=== PATIENT | female | born 1970 | race Caucasian/White ===

== ENCOUNTER → 2016-12-07 | Outpatient (CLI) | payer BC | LOC: WI 13:13 | PROVIDERS: ATTEND Specialist | DX: Z12.31 Encounter for screening mammogram for malignant neoplasm of breast (principal); M81.0 Age-related osteoporosis without current pathological fracture | CPT/HCPCS: 77080; G0202 ==

== ENCOUNTER → 2018-01-27 | Outpatient (CLI) | payer BC ==
--- NOTE | 2018-01-28 07:26 | WOMENS IMAGING REPORT ---
EXAM DESCRIPTION: 3D SCREENING MAMMO RIGHT COMPLETED DATE/TIME: 01/27/2018 2:33 pm REASON FOR STUDY: ROUTINE SCREENING;Z12.31 Z12.31 ENCNTR SCREEN MAMMOGRAM FOR MALIGNANT NEOPLASM OF KATRIN COMPARISON: Multiple since 2011 TECHNIQUE: Implant displaced and whole breast craniocaudal and mediolateral oblique views of the rig ht breast recorded using digital acquisition and breast tomosynthesis. LIMITATIONS: None. FINDINGS: BREAST: Right MASSES: No suspicious masses. CALCIFICATIONS: In the right retroareolar 12 o'clock position, micro calcifications are present which require further evaluation with compression magnification views ARCHITECTURAL DISTORTION: Patient is post right breast reduction and breast lift with postsurgical ch anges present. DEVELOPING DENSITY: None. ASYMMETRY: None noted. OTHER: Retropectoral right breast implant. Read with the assistance of CAD. .[facility] - R2 [employer] Version 1.3 .[facility] - R2 Cenova Version 1.3 .[facility] - R2 Cenova Version 2.4 .[facility] - R2 Cenova Version 2.4 .[facility] - R2 Residential Program Coordinator Version 9.2 IMPRESSION: Calcifications right breast retroareolar region which require further evaluation with co mpression magnification views BREAST DENSITY: c. The breasts are heterogeneously dense, which may obscure small masses. BIRAD: 0 Incomplete: Needs Additional Imaging Evaluation and/or prior Mammograms for Comparison. RECOMMENDATION: RECOMMENDED FOLLOW-UP: Right breast compression magnification views for calcificatio ns in the retroareolar region The patient will be contacted for additional imaging. COMMENT: The patient has been notified of the results by letter per SA requirements. Additional no tification policies are in place for contacting patient with suspicious or incomplete findings. Quality ID #[id number]: The [employer] recommends an annual screening mammogram for women aged 40 years or over. This facility utilizes a reminder system to ensure that all patients receive reminder letters, and/or direct phone calls for appointments. This includes reminders for routine scr eening mammograms, diagnostic mammograms, or other Breast Imaging Interventions when appropriate. Th is patient will be placed in the appropriate reminder system. The [employer] (ACR) has developed recommendations for screening MRI of the breast s in certain patient populations, to be used in conjunction with mammography. Breast MRI surveillance may be appropriate for women with more than 20% lifetime risk of developing breast cancer as determi walter by genetic testing, significant family history of the disease, or history of mantle radiation for Hodgkins Disease. ACR Practice Guidelines 2008. DBT Technology DBT is a type of tomographic mammography. With conventional mammography, overlapping breast tissue ma y make lesions difficult to detect, even with good compression. DBT uses an x-ray tube that rotates a round the breast, taking images at different angles. These images are then combined to create thin sl ices of the breast that the radiologist can view as a 3D reconstruction. The [employer] unit can perform full-field digital mammograms (2D imaging); or DBT (3D imaging); or both, in a combination mode that quickly performs both the mammogram and the tomosynthesis scan while the breast is still compressed. PQRS 6045F: Fluoroscopic imaging is not utilized for breast tomosynthesis. TECHNICAL DOCUMENTATION: FINDING NUMBER: (1) ASSESSMENT: (1) JOB ID: [id number] [employer]- All Rights Reserved Reading location - IP/workstation name: [email or web address]
== END ==
LOC: WI 14:12
PROVIDERS: ATTEND Internal Medicine Hematology & Oncology
DX: Z12.31 Encounter for screening mammogram for malignant neoplasm of breast (principal)

== ENCOUNTER → 2018-02-03 | Outpatient (CLI) | payer BC ==
--- NOTE | 2018-02-04 14:37 | WOMENS IMAGING REPORT ---
EXAM DESCRIPTION: RIGHT DIAGNOSTIC MAMMO W/CAD COMPLETED DATE/TIME: 02/03/2018 8:46 am REASON FOR STUDY: RT BREAST CALCS R92.0 MAMMOGRAPHIC MICROCALCIFICATION FOUND ON DX IMAGING OF COMPARISON: 01/27/2018 and 12/07/2016. TECHNIQUE: True lateral and magnification lateral and CC images acquired. LIMITATIONS: None. FINDINGS: BREAST: right MASSES: No suspicious masses. CALCIFICATIONS: Calcifications in the retroareolar breast directly behind the nipple. Calcifications are relatively round with smooth margins and no clear-cut pleomorphic characteristics. A few of the calcifications may have radiolucent centers. ARCHITECTURAL DISTORTION: None. DEVELOPING DENSITY: None. ASYMMETRY: None noted. OTHER: No other significant findings. IMPRESSION: Calcifications in the retroareolar breast which do not have clearly suspicious appearanc e mammographically. Recommend a short-term interval followup. BREAST DENSITY: b. There are scattered areas of fibroglandular density. BIRAD: 3 Probably benign finding. Initial short-interval follow-up suggested. RECOMMENDATION: RECOMMENDED FOLLOW UP: Birads 3: The patient will return in 6 months for follow-up i pritesh. SPECIFIC INTERVENTION/IMAGING/CONSULTATION RECOMMENDED:No additional intervention/ imaging/consultati on needed at this time. COMMUNICATION:The imaging findings were not discussed with the patient. Her referring provider has be en notified of the findings. COMMENT: The patient has been notified of the results by letter per SA requirements. Additional no tification policies are in place for contacting patient with suspicious or incomplete findings. Quality ID #[id number]: The [employer] recommends an annual screening mammogram for women aged 40 years or over. This facility utilizes a reminder system to ensure that all patients receive reminder letters, and/or direct phone calls for appointments. This includes reminders for routine scr eening mammograms, diagnostic mammograms, or other Breast Imaging Interventions when appropriate. Th is patient will be placed in the appropriate reminder system. The [employer] (ACR) has developed recommendations for screening MRI of the breast s in certain patient populations, to be used in conjunction with mammography. Breast MRI surveillanc e may be appropriate for women with more than 20% lifetime risk of developing breast cancer as deter mined by genetic testing, significant family history of the disease, or history of mantle radiation f or Hodgkins Disease. ACR Practice Guidelines 2008. TECHNICAL DOCUMENTATION: FINDING NUMBER: (1) ASSESSMENT: (1) JOB ID: [id number] [employer]- All Rights Reserved Reading location - IP/workstation name: [email or web address]
== END ==
LOC: WI 08:30
PROVIDERS: ATTEND Internal Medicine Hematology & Oncology
DX: R92.0 Mammographic microcalcification found on diagnostic imaging of breast (principal); R92.2 Inconclusive mammogram

== ENCOUNTER → 2020-07-10 | Outpatient (CLI) | payer BC ==
--- NOTE | 2020-07-10 13:41 | WOMENS IMAGING REPORT ---
EXAM DESCRIPTION: 3D SCREENING MAMMO RIGHT IMAGES COMPLETED DATE/TIME: 07/10/2020 10:55 am REASON FOR STUDY: ROUTINE SCREENING MAMMOGRAM Z12.31 Z12.31 ENCNTR SCREEN MAMMOGRAM FOR MALIGNANT N EOPLASM OF KATRIN COMPARISON: Priors back to 2013. EXAM PARAMETERS: Standard craniocaudal and mediolateral oblique views of the breast recorded using d igital acquisition and breast tomosynthesis. Additional "push-back" craniocaudal and mediolateral ob lique images acquired. Read with the assistance of CAD. .[facility] - [employer] Test Evaluator Version 9.2 LIMITATIONS: None. FINDINGS: IMPLANT: Subpectoral implant. BREAST LATERALITY: right Findings present which are benign by mammographic criteria. No suspicious masses, calcifications or a rchitectural distortion. Benign mammographic findings may include one or more of the following: Smooth masses, popcorn/rim/co arse calcifications, asymmetries, post-procedure changes, and lesions with long-standing stability. IMPRESSION: BENIGN FINDINGS. BIRADS 2. BREAST DENSITY: b. There are scattered areas of fibroglandular density. BIRAD: ASSESSMENT: 2 Benign Finding(s) RECOMMENDATION: RECOMMENDATION: ROUTINE SCREENING. COMMENT: The patient has been notified of the results by letter per SA requirements. Additional no tification policies are in place for contacting patient with suspicious or incomplete findings. Quality ID #[id number]: The [employer] recommends an annual screening mammogram for women aged 40 years or over. This facility utilizes a reminder system to ensure that all patients receive reminder letters, and/or direct phone calls for appointments. This includes reminders for routine scr eening mammograms, diagnostic mammograms, or other Breast Imaging Interventions when appropriate. Th is patient will be placed in the appropriate reminder system. TECHNICAL DOCUMENTATION: FINDING NUMBER: (1) ASSESSMENT: (1) JOB ID: [id number] 2010 [employer]- All Rights Reserved Reading location - IP/workstation name: [email or web address]
--- OUTSIDE RECORDS SUMMARY | 2020-07-12 14:41 | XMS REPORT ---
:1970 Author Organization [facility] Address [facility] [address] [place] [id number] Care Team Providers Name Role Phone Natalie Attending Clinician Unavailable Delfino Mayorga Attending Clinician Unavailable Natalie Attending Clinician Unavailable Allergies, Adverse Reactions, Alerts This patient has no known allergies or adverse reactions. Medications Ordered Filled Start Stop Current Ordering Indication Dosage Frequency Signature Comments Components Medication Medication Date Date Medication? Clinician (SIG) Name Name atorvastati No atorvastat n 10 mg in 10 mg tablet TK 1 tablet TK T PO QD 1 T PO QD dextroamphe No dextroamph tamine-amph etamine-am etamine 30 phetamine mg tablet 30 mg TK 2 TS PO tablet TK QD B KATRIN 2 TS PO QD B KATRIN fluvoxamine No fluvoxamin 25 mg e 25 mg tablet tablet levothyroxi No levothyrox ne 50 mcg ine 50 mcg tablet TAKE tablet 1 TABLET BY TAKE 1 MOUTH EVERY TABLET BY DAY MOUTH EVERY DAY meloxicam No meloxicam 7.5 mg 7.5 mg tablet TAKE tablet 1 TABLET BY TAKE 1 MOUTH DAILY TABLET BY NEEDED MOUTH DAILY NEEDED venlafaxine No venlafaxin ER 150 mg e ER 150 capsule,ext mg ended capsule,ex release 24 tended hr release 24 hr venlafaxine No venlafaxin ER 75 mg e ER 75 mg capsule,ext capsule,ex ended tended release 24 release 24 hr hr Ventolin No 2inhala Q5H Ventolin HFA 90 tion(s) HFA 90 mcg/actuati mcg/actuat on aerosol ion inhaler aerosol Inhale 2 inhaler inhalations Inhale 2 every 4-6 inhalation hours by s every inhalation 4-6 hours route as by directed inhalation for 30 route as days. directed for 30 days. Problems Condition Condition Condition Status Onset Resolution Last Treatin g Comments Name Details Category Date Date Treatment Clinician Date Mild Mild Problem Active 2019-08 intermitten Intermitten 0-14 t asthma t Asthma 00:00: 00 Anemia Anemia Problem Active Bipolar Bipolar Problem Active disorder Disorder Alcohol Alcohol Problem Active dependence Dependence Nicotine Nicotine Problem Active dependence Dependence Depressive Depressive Problem Active disorder Disorder Insomnia Insomnia Problem Active Disorder of Disorder of Problem Active artery Artery Allergic Allergic Problem Active rhinitis Rhinitis Acute Acute Problem Active alcoholic Alcoholic liver Liver disease Disease Low back Low Back Problem Active pain Pain Cough Cough Problem Active Mammographi Mammographi Problem Active c breast c Breast mass Mass Measurement Measurement Problem Active finding Finding Degeneratio Degeneratio Problem Active n of n of interverteb Interverteb ral disc ral Disc Genital Genital Problem Active herpes Herpes simplex Simplex Malignant Malignant Problem Active neoplasm of Neoplasm of female Female breast Breast Hypothyroid Hypothyroid Problem Active ism ism Vitamin D Vitamin D Problem Active deficiency Deficiency Hyperlipide Hyperlipide Problem Active raymond raymond 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 Anemia due to Due to vitamin Vitamin B>12< B>12< deficiency Deficiency Procedures Procedure Date / Time Performed Performing Clinician Devic e pulse oximetry (PROC) 2020-06-12 00:00:00 MAMMO, screening, digital, 2020-06-12 00:00:00 bilateral US, thyroid 2020-06-12 00:00:00 OFFICE/OUTPATIENT VISIT EST 2020-04-09 08:20:00 OFFICE/OUTPATIENT VISIT EST 2019-12-12 12:40:00 OFFICE/OUTPATIENT VISIT EST 2019-09-05 08:50:00 OFFICE/OUTPATIENT VISIT EST 2019-05-16 07:00:00 OFFICE/OUTPATIENT VISIT EST 2019-01-19 10:00:00 OFFICE/OUTPATIENT VISIT EST 2018-10-27 10:10:00 OFFICE/OUTPATIENT VISIT EST 2018-09-01 08:40:00 OFFICE/OUTPATIENT VISIT EST 2018-08-03 11:50:00 OFFICE/OUTPATIENT VISIT EST 2018-06-30 12:00:00 OFFICE/OUTPATIENT VISIT EST 2018-03-31 09:10:00 OFFICE/OUTPATIENT VISIT EST 2018-03-03 13:40:00 OFFICE/OUTPATIENT VISIT EST 2017-11-24 19:10:00 OFFICE/OUTPATIENT VISIT EST 2017-09-09 14:50:00 OFFICE/OUTPATIENT VISIT EST 2017-05-26 08:30:00 OFFICE/OUTPATIENT VISIT EST 2017-04-28 08:30:00 OFFICE/OUTPATIENT VISIT EST 2017-03-29 09:00:00 OFFICE/OUTPATIENT VISIT EST 2017-02-18 15:40:00 OFFICE/OUTPATIENT VISIT EST 2016-12-24 15:00:00 OFFICE/OUTPATIENT VISIT EST 2016-11-24 15:20:00 OFFICE/OUTPATIENT VISIT EST 2016-08-11 14:30:00 Mastectomy 2013-08-30 00:00:00 Orthopaedic Surgery 2009-08-30 00:00:00 Other 2005-08-30 00:00:00 Results Test Description Test Time Test Comments Text Results Atomic Results Result Comments CBC With Differential/Platelet\S\ 2018-09-01 09:32:00 Test Item Value Reference Range Comments Immature Granulocytes (test code = 35676-7) 0 % Not Estab. MCH (test code = 785-6) 26.9 pg 26.6-33.0 Hematocrit (test code = 4544-3) 36.4 % 34.0-46.6 MCHC (test code = 786-4) 32.7 g/dL 31.5-35.7 Lymphs (test code = 736-9) 27 % Not Estab. Platelets (test code = 777-3) 335 x10E3/uL 150-379 Immature Grans (Abs) (test code = 87798-5) 0.0 x10E3/uL 0.0-0 .1 Monocytes (test code = 5905-5) 7 % Not Estab. RBC (test code = 789-8) 4.43 x10E6/uL 3.77-5.28 Neutrophils (test code = 770-8) 64 % Not Estab. RDW (test code = 788-0) 14.7 % 12.3-15.4 WBC (test code = 6690-2) 9.2 x10E3/uL 3.4-10.8 Neutrophils (Absolute) (test code = 751-8) 6.0 x10E3/uL 1.4-7 .0 Basos (test code = 706-2) 0 % Not Estab. Eos (test code = 713-8) 2 % Not Estab. Lymphs (Absolute) (test code = 731-0) 2.5 x10E3/uL 0.7-3.1 Hemoglobin (test code = 718-7) 11.9 g/dL 11.1-15.9 Baso (Absolute) (test code = 704-7) 0.0 x10E3/uL 0.0-0.2 Eos (Absolute) (test code = 711-2) 0.2 x10E3/uL 0.0-0.4 MCV (test code = 787-2) 82 fL 79-97 Monocytes(Absolute) (test code = 742-7) 0.6 x10E3/uL 0.1-0.9 TSH\S\2018-09-01 09:32:00 Test Item Value Reference Range Comments TSH (test code = 48152-1) 0.937 uIU/mL 0.450-4.500 Lipid Panel\S\2018-09-01 09:32:00 Test Item Value Reference Range Comments HDL Cholesterol (test code = 2085-9) 65 mg/dL >39 VLDL Cholesterol Bravo (test code = 48989-8) 15 mg/dL 5-40 Cholesterol, Total (test code = 2093-3) 275 mg/dL 100-199 Triglycerides (test code = 2571-8) 73 mg/dL 0-149 LDL Cholesterol Calc (test code = 21642-6) 195 mg/dL 0-99 Comp. Metabolic Panel (14)\S\2018-09-01 09:32:00 Test Item Value Reference Range Comments A/G Ratio (test code = 1759-0) 1.8 1.2-2.2 Calcium (test code = 59420-0) 9.5 mg/dL 8.7-10.2 Glucose (test code = 2345-7) 74 mg/dL 65-99 eGFR If Africn Am (test code = 14689-7) 111 mL/min/1.73 >59 Potassium (test code = 2823-3) 4.3 mmol/L 3.5-5.2 ALT (SGPT) (test code = 1742-6) 9 IU/L 0-32 eGFR If NonAfricn Am (test code = 04409-2) 96 mL/min/1.73 >59 Globulin, Total (test code = 09244-7) 2.4 g/dL 1.5-4.5 Bilirubin, Total (test code = 1975-2) 0.4 mg/dL 0.0-1.2 Chloride (test code = 2075-0) 101 mmol/L 96-106 AST (SGOT) (test code = 1920-8) 20 IU/L 0-40 Albumin (test code = 1751-7) 4.4 g/dL 3.5-5.5 Creatinine (test code = 2160-0) 0.74 mg/dL 0.57-1.00 Protein, Total (test code = 2885-2) 6.8 g/dL 6.0-8.5 Alkaline Phosphatase (test code = 6768-6) 62 IU/L 39-117 Carbon Dioxide, Total (test code = 2027-9) 22 mmol/L 20-29 BUN/Creatinine Ratio (test code = 3097-3) 18 9-23 Sodium (test code = 2951-2) 140 mmol/L 134-144 BUN (test code = 3094-0) 13 mg/dL 6-24 Assessments Condition Name Status Diagnosis Date Treating Clinici an Mild intermittent asthma Active 2020-06-12 13:41:35 Patient informed - test result Active 2020-06-12 12:02: 20 Screening for malignant neoplasm of Active 2020-06-12 1 2:01:55 breast Gynecologic examination Active 2020-06-11 13:52:44 Screening for malignant neoplasm of Active 2020-06-11 1 3:52:48 cervix Swelling / lump finding Active 2020-06-12 12:08:23 Attention-deficit hyperactivity Active disorder, combined type Unspecified mood [affective] disorder Active Obsessive-compulsive disorder, Active unspecified Panic disorder [episodic paroxysmal Active anxiety] Attention-deficit hyperactivity Active disorder, combined type Obsessive-compulsive disorder, Active unspecified Panic disorder [episodic paroxysmal Active anxiety] Unspecified mood [affective] disorder Active Attention-deficit hyperactivity Active disorder, combined type Unspecified mood [affective] disorder Active Obsessive-compulsive disorder, Active unspecified Primary insomnia Active Attention-deficit hyperactivity Active disorder, combined type Unspecified mood [affective] disorder Active Panic disorder without agoraphobia Active Obsessive-compulsive disorder, Active unspecified Unspecified mood [affective] disorder Active Obsessive-compulsive disorder, Active unspecified Panic disorder without agoraphobia Active Attention-deficit hyperactivity Active disorder, combined type Unspecified mood [affective] disorder Active Attention-deficit hyperactivity Active disorder, combined type Obsessive-compulsive disorder, Active unspecified Panic disorder without agoraphobia Active Attention-deficit hyperactivity Active disorder, combined type Unspecified mood [affective] disorder Active Obsessive-compulsive disorder, Active unspecified Panic disorder without agoraphobia Active Attention-deficit hyperactivity Active disorder, combined type Unspecified mood [affective] disorder Active Obsessive-compulsive disorder, Active unspecified Panic disorder without agoraphobia Active Attention-deficit hyperactivity Active disorder, combined type Unspecified mood [affective] disorder Active Obsessive-compulsive disorder, Active unspecified Panic disorder without agoraphobia Active Attention-deficit hyperactivity Active disorder, combined type Unspecified mood [affective] disorder Active Obsessive-compulsive disorder, Active unspecified Panic disorder without agoraphobia Active Attention-deficit hyperactivity Active disorder, combined type Major depressive disorder, recurrent, Active moderate Insomnia, unspecified Active Obsessive-compulsive disorder, Active unspecified Attention-deficit hyperactivity Active disorder, combined type Insomnia, unspecified Active Major depressive disorder, recurrent, Active moderate Obsessive-compulsive disorder, Active unspecified Attention-deficit hyperactivity Active disorder, combined type Major depressive disorder, recurrent, Active moderate Obsessive-compulsive disorder, Active unspecified Panic disorder without agoraphobia Active Attention-deficit hyperactivity Active disorder, combined type Insomnia, unspecified Active Major depressive disorder, recurrent, Active moderate Obsessive-compulsive disorder, Active unspecified Attention-deficit hyperactivity Active disorder, combined type Major depressive disorder, recurrent, Active moderate Insomnia, unspecified Active Obsessive-compulsive disorder, Active unspecified Attention-deficit hyperactivity Active disorder, combined type Major depressive disorder, recurrent, Active moderate Insomnia, unspecified Active Obsessive-compulsive disorder, Active unspecified Attention-deficit hyperactivity Active disorder, combined type Insomnia, unspecified Active Major depressive disorder, recurrent, Active moderate Obsessive-compulsive disorder, Active unspecified Attention-deficit hyperactivity Active disorder, combined type Major depressive disorder, recurrent, Active moderate Panic disorder without agoraphobia Active Obsessive-compulsive disorder, Active unspecified Attention-deficit hyperactivity Active disorder, combined type Major depressive disorder, recurrent, Active moderate Obsessive-compulsive disorder, Active unspecified Panic disorder without agoraphobia Active Major depressive disorder, recurrent, Active moderate Attention-deficit hyperactivity Active disorder, combined type Obsessive-compulsive disorder, Active unspecified Panic disorder without agoraphobia Active Encounters Start End Encounter Admission Attending Care Care Encounter Date/Time Date/Time Type Type Clinicians Facility Department ID 2020-06-12 2020-06-12 Kylah Franco [id number] 00:00:00 00:00:00 Ap 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 2020-04-09 2020-04-09 Outpatient [facility] B [id number] 08:20:00 08:20:00 Bran Maza [id number] s [id number] and [id number] [facility], 2019-12-12 2019-12-12 Outpatient [facility] 3 [id number] 12:40:00 12:40:00 Bran Maza [id number] s [id number] and [id number] [facility], 2019-09-05 2019-09-05 Outpatient [facility] [id number] 08:50:00 08:50:00 Green, Children [id number] Otilia s [id number] and [id number] [facility], 2019-05-16 2019-05-16 Outpatient [facility] [id number] 07:00:00 07:00:00 Green, Children???s [id number] Otilia and [id number] [id number] 2019-01-19 2019-01-19 Outpatient [facility] 6 [id number] 10:00:00 10:00:00 Bran Maza [id number] s [id number] and [id number] [facility], 2018-10-27 2018-10-27 Outpatient [facility] 0 [id number] 10:10:00 10:10:00 Bran Maza [id number] s [id number] and [id number] [facility] 2018-09-01 2018-09-01 Outpatient [facility] 4 [id number] 08:40:00 08:40:00 Bran Children [id number] s [id number] and [id number] [facility], [place] 2018-08-03 2018-08-03 [facility] B [id number] 11:50:00 11:50:00 Bran Maza [id number] s [id number] and [id number] [facility] [place] 2018-06-30 2018-06-30 [facility] C [id number] 12:00:00 12:00:00 Bran Maza [id number] s [id number] and [id number] [facility] [place] 2018-03-31 2018-03-31 [facility] 1 [id number] 09:10:00 09:10:00 Bran Maza [id number] s [id number] and [id number] [facility] [place] 2018-03-03 2018-03-03 [facility] A [id number] 13:40:00 13:40:00 Bran Maza [id number] s [id number] and [id number] [facility] 2017-11-24 2017-11-24 [facility] 0 [id number] 19:10:00 19:10:00 Bran Maza [id number] s [id number] and [id number] [facility] [place] 2017-09-09 2017-09-09 [facility] 6 [id number] 14:50:00 14:50:00 Bran Maza [id number] s [id number] and [id number] [facility] [place] 2017-05-26 2017-05-26 [facility] 2 [id number] 08:30:00 08:30:00 Bran Maza [id number] s [id number] and [id number] [facility] 2017-04-28 2017-04-28 [facility] 9 [id number] 08:30:00 08:30:00 Bran Maza [id number] s [id number] and [id number] [facility] [place] 2017-03-29 2017-03-29 Outpatient [facility] A [id number] 09:00:00 09:00:00 Bran Children [id number] s [id number] and [id number] [facility] 2017-02-18 2017-02-18 Outpatient [facility] 3 [id number] 15:40:00 15:40:00 Bran Children [id number] s [id number] and [id number] [facility], [place] 2016-12-24 2016-12-24 Outpatient [facility] 0 [id number] 15:00:00 15:00:00 Bran Children [id number] s [id number] and [id number] [facility], [place] 2016-11-24 2016-11-24 Outpatient [facility] D [id number] 15:20:00 15:20:00 Bran Children [id number] s [id number] and [id number] [facility], [place] 2016-08-11 2016-08-11 Outpatient [facility] 7 [id number] 14:30:00 14:30:00 Bran Maza [id number] s [id number] and [id number] [facility], [place] Immunizations Ordered Immunization Filled Immunization Date Status Commen ts Refusal Reason Name Name influenza, 2019-09-26 Completed injectable, 11:07:06 quadrivalent Influenza, 2018-11-03 Completed injectable, MDCK, 08:41:01 preservative free, quadrivalent Tdap 2014-01-18 Completed 15:25:50 influenza, seasonal, 2013-08-01 Completed injectable 16:35:11 influenza, seasonal, 2012-09-09 Completed injectable 00:00:00 influenza, 2010-08-25 Completed unspecified 00:00:00 formulation tetanus toxoid, 2010-06-30 Completed adsorbed 00:00:00 tetanus toxoid, 2010-06-30 Completed unspecified 00:00:00 formulation Plan of Treatment Planned Activity Planned Date Details Comments Future Appointment 2020-12-18 09:00:00 Kylah Peralta, [address]; [address], [place] [address] Future Appointment 2020-12-11 08:30:00 Nurse, MoniquePhil Bettye Tanner; [address], [place] [address] Social History Smoking Status Start Date Stop Date Former Smoker Vital Signs Vital Name Observation Time Observation Value Comments BP Diastolic 2020-06-12 00:00:00 97 mm[Hg] Height 2020-06-12 00:00:00 64 [in_i] BMI (Body Mass Index) 2020-06-12 00:00:00 24 kg/m2 BP Systolic 2020-06-12 00:00:00 117 mm[Hg] Body Weight 2020-06-12 00:00:00 140 [lb_av] Hospital Discharge Instructions 1. Gynecologic examination pulse oximetry (PROC) urinalysis, dipstick bacterial vaginosis panel, vaginal 2. Screening for malignant neoplasm of cervix pap, IG + CT/NG + HPV mRNA E6/E7 3. Swelling / lump finding US, thyroid 4. Mild intermittent asthma Ventolin HFA 90 mcg/actuation aerosol inhaler 5. Patient informed - test result 6. Screening for malignant neoplasm of breast MAMMO, screening, digital, bilateral Discussion Note After performing a Medical Screening Examination, I estimate there is LOW risk for ACUTE APPENDICITIS, BOWEL OBSTRUCTION, ACUTE CHOLECYSTITIS, PERFORATED DIVERTICULITIS, INCARCERATED HERNIA, PANCREATITIS, PELVIC INFLAMMATORY DISEASE, PERFORATED ULCER, ECTOPIC , or TUBO-OVARIAN ABSCESS, thus I consider the discharge disposition reasonable.Also, there is no evidence of peritonitis, sepsis, or toxicity. The patient and I have discussed thediagnosis and risks, and we agree with discharging home with close follow-up with the understanding t hat symptoms and presentations can change. We also discussed returning to the Office immediately if new or worsening symptoms occur. We have discussed the symptoms which are most concerning (e.g., bloody stool, fever, changing or worsening pain, vomiting) that necessitate immediate return. Patient educational handouts: No information available.
== END ==
LOC: WI 15:38
PROVIDERS: ATTEND Registered Nurse
DX: Z12.31 Encounter for screening mammogram for malignant neoplasm of breast (principal); Z98.82 Breast implant status